=== PATIENT | female | born 1970 | race Caucasian/White ===

== ENCOUNTER 2019-06-20 11:36 | Emergency (ER) | payer OTHER ==
[2019-06-20 11:54] VITALS: RESP 16
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
[2019-06-20] MEDS ORDERED: KETOROLAC 60 MG/2 ML VIAL IM STA (13:01)
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
[2019-06-20 14:21] VITALS: BP 132/79; PULSE 78; TEMP 98.2
== END 2019-06-20 14:39 | disposition home or self-care (01) ==
LOC: EC 11:36
DX: S40.012A Contusion of left shoulder, initial encounter (principal); F17.200 Nicotine dependence, unspecified, uncomplicated; Z88.2 Allergy status to sulfonamides; V43.53XA Car driver injured in collision with pick-up truck in traffic accident, initial encounter; Y92.410 Unspecified street and highway as the place of occurrence of the external cause; Y99.0 Civilian activity done for income or pay
CPT/HCPCS: 72170; 73000; 71046; 72125; 99285; 96372; J1885